=== PATIENT | female | born 1985 | race Caucasian/White ===

== ENCOUNTER 2016-04-20 21:21 | Emergency (ER) | payer OTHER ==
--- NOTE | 2016-04-20 22:46 | ED NECK/BACK PAIN COMPLAINT ---
History of Present Illness General Chief Complaint: Low Back Pain/Injury Stated Complaint: LOWER BACK INJURY Source: patient Exam Limitations: no limitations Allergies Coded Allergies: No Known Allergies (04/20/16) Triage Note: TRIAGE; PT TO ED C/O LOWER BACK PAIN SINCE LAST FRIDAY 04/14. PT STATES HER FOOT SLID WHILE WALKING AT WORK AND STARTED HAVING LOWER BACK PAIN. STATES THE PAIN SHOOTS DOWN BOTH LEGS IF IT FEELS LIKE SCIATICA. PT STATES SHE WENT TO HER PMD THE DAY OF THE INJURY AND THEY SCHEDULED HER FOR XRAYS. WAS AT THE OFFICE FOR XRAYS, BUT WAITED AN HOUR AND LEFT BECAUSE OF THE PAIN. PT STATES SHE THEN WENT TO [facility] THAT NIGHT, HAD XRAYS PERFORMED, BUT STATES NOONE WAS GIVING HER RESULTS SO SHE LEFT THERE WELL. PT REPORTS HAVING AN EPISODE OF BOWEL INCONTINENCE THAT NIGHT. TODAY PT REPORTS HAVING EPISODES OF URINARY INCONTINENCE. WENT TO HER PMD TODAY AND PT WAS TOLD THEY ARE WAITING FOR HER WORKERS COMP TO GO THROUGH SO THEY CAN ORDER AN MRI. PT WAS RX'D LIDODERM PATCHES TODAY FROM HER PCP. PT STATES THAT SHE ALREADY HAS FILED THE WORKERS COMP INFORMATION AND HAS AN SCIENCE TECHNICIAN. PT DENIES NEEDING US TO PUT A CLAIM IN OUR SYSTEM AT THIS TIME. Triage Nurses Notes Reviewed? yes : No Patient currently breastfeeds: No HPI: 30/F with PMH of anxiety and depression presented to [place] ED complaining of back pain after she slipped 6 days ago. She reported that she slipped while walking, she stated that her right leg slipped however she did not fall. She denies any popping sound or feeling on the back after she slipped. At that the of the and stent patient lost control over bowel habit, she felt numbness on her right thigh anteriorly. Patient was seen on the same day of stents and x-ray was done which did not relieve any fracture. Today patient pain still persists, she lost control over urine habits , numbness and burning sensation alternating over both thighs anteriorly. She denies any weakness Patient denies fever, chills, dysuria, pain, dizziness, or headache. (KEVIN FOOTE,ISMAIL) Vital Signs & Intake/Output Vital Signs & Intake/Output Vital Signs Date Time Temp Pulse Resp B/P Pulse O2 O2 Flow FiO2 Ox Delivery Rate 04/21 0037 97.3 97 18 126/78 96 Room Air 04/20 2318 Room Air 04/208 97.4 121 18 135/86 96 Room Air ED Intake and Output 04/21 0000 04/20 1200 Intake Total 0 Output Total Balance 0 Intake, Oral 0 Reconcile Medications Naproxen 500 MG TABLET 1 TAB PO BID disc bulging (EAMON GILLIAM MD) Past History Travel History Traveled to [place] past 21 day No Psychosocial History What is your primary language Paraguayan Tobacco Use: Current Daily Use Daily Tobacco Use Amount/Type: => 5 Cigarettes daily (ZARI BROWN MD) Medical History Any Pertinent Medical History? none Surgical History Surgical History: non-contributory Family History Hx Contributory? No (EAMON GILLIAM MD) Review of Systems Review of Systems Constitutional: Reports: see HPI. Denies: chills, diaphoresis, fever, weakness. (ZARI BROWN MD) Review of Systems Constitutional: Reports: no symptoms. Eyes: Reports: no symptoms. Ears, Nose, Throat, Mouth: Reports: no symptoms. Respiratory: Reports: no symptoms. Cardiovascular: Reports: no symptoms. Gastrointestinal/Abdominal: Reports: no symptoms. Musculoskeletal: Reports: see HPI, back pain. Skin: Reports: no symptoms. Neurological/Psychological: Reports: no symptoms. All Other Systems: Reviewed and Negative (EAMON GILLIAM MD) Physical Exam Physical Exam General Appearance: well developed/nourished, alert, awake, moderate distress ( with movement) Head: atraumatic, normal appearance Neck: normal inspection, full range of motion Back: normal inspection, decreased range of motion because of pain, local tenderness over L4-L5, paraspinal tenderness, positive straight leg raise test bilaterally with left more than right (KEVIN FOOTE,ZARI) Physical Exam General Appearance: well developed/nourished, mild distress Head: atraumatic Eyes: Bilateral: PERRL, EOMI. Ears, Nose, Throat, Mouth: hearing grossly normal Respiratory: normal breath sounds Cardiovascular: regular rate/rhythm Peripheral Pulses: 4+ carotid (R), 4+ carotid (L) Gastrointestinal: soft, non-tender Back: normal inspection Extremities: non-tender, normal range of motion Straight Leg Raising: Right: Pain at ____ degrees (15). Left: Pain at ____ degrees (15). Sensory: Medial Le: L4R, L4L. Top of Foot: 2: L5R, L5L. Sole of Foot: 2: SIR, ERIC. Motor: Deficit L4 Right: No Deficit L4 Left: No Deficit L5 Right: No Deficit L5 Left: No Deficit S1 Right: No Deficit S1 Right: No DTR: Deficit L4 Left: No Deficit L4 Right: No Deficit S1 Left: No Deficit S1 Right: No Patellar: 3: L4 Right, L4 Left. Neurologic/Psych: no motor/sensory deficits, awake, alert, oriented x 3, normal gait, normal mood/affect, feather edger II-XII nml as tested Skin: intact, normal color, warm/dry (EAMON GILLIAM MD) Progress Differential Diagnosis: disc prolapse, disc herniation, vertebral fracture (KEVIN FOOTE,ISMAIL) Plan of Care: Orders Procedure Date/time Status HUMAN BETA HCG SCREEN 04/20 2249 Complete COMPREHENSIVE METABOLIC PANEL 04/20 2244 Complete CBC WITHOUT DIFFERENTIAL 04/20 2244 Complete Laboratory Tests 04/20/162299: Total Beta HCG NEGATIVE 04/20/162299: Anion Gap 16, Estimated GFR > 60, BUN/Creatinine Ratio 11.3, Glucose 112 H, Calcium 9.2, Total Bilirubin 0.3, AST 25, ALT 39, Alkaline Phosphatase 97, Total Protein 7.4, Albumin 4.5, Globulin 2.9, Albumin/Globulin Ratio 1.6, CBC w Diff NO MAN DIFF REQ, RBC 4.86, MCV 88.1, MCH 29.2, RDW 13.9, MPV 8.6, Gran % 61.6, Lymphocytes % 26.7, Monocytes % 9.6 H, Eosinophils % 1.1, Basophils % 1.0, Absolute Granulocytes 5.2, Absolute Lymphocytes 2.2, Absolute Monocytes 0.8 H, Absolute Eosinophils 0.1, Absolute Basophils 0.1, PUBS MCHC 33.2 (KEVIN FOOTE,ISMAIL) Diagnostic Imaging: Viewed by Me: CT Scan. Discussed w/RAD: CT Scan. Radiology Impression: No fracture or malalignment. Small disc bulges at L4-L5 and L5-S1 without spinal canal or neuroforaminal narrowing. MRI is a more sensitive undercover cop for this pathology. (EAMON GILLIAM MD) Departure Departure Disposition: HOME OR SELF CARE Condition: Stable Referrals: ARIELLE PASCUAL MD (PCP/Family) Additional Instructions: Please take naproxen as prescribed, please follow-up with your primary care doctor within 1 week Departure Forms: Customer Survey General Discharge Information Prescriptions: Current Visit Scripts Naproxen 1 TAB PO BID #20 TAB [facility] Departure Clinical Impression Primary Impression: Bulging disc Secondary Impressions: Back pain at L4-L5 level Resident Co-Sign Statement Statement: ED Attending supervision documentation- x I saw and evaluated the patient. I have also reviewed all the pertinent lab results and diagnostic results. I agree with the findings and the plan of care as documented in the Resident's documentation. [] I have reviewed the ED Record and agree with the Resident's documentation. [] Additions or exceptions (if any) to the Resident's note and plan are summarized below: [] (MANE FOOTE,EAMON)
[2016-04-20 23:08] LABS: ABSOLUTE BASOPHIL COUNT 0.1 /CUMM (0.0-0.2); ABSOLUTE EOSINOPHIL COUNT 0.1 /CUMM (0.0-0.7); ABSOLUTE GRANULOCYTE CT 5.2 /CUMM (1.4-6.5); ABSOLUTE LYMPH COUNT 2.2 /CUMM (1.2-3.4); ABSOLUTE MONOCYTE COUNT 0.8 /CUMM (0.10-0.60); EOSINOPHIL % 1.1 % (0-5); GRANULOCYTE % 61.6 % (42.2-75.2); HEMATOCRIT 42.8 % (37-47); MEAN CORPUSCULAR HGB 29.2 PG (27.0-31.0); MEAN CORPUSCULAR HGB CONC 33.2 G/DL (33.0-37.0); MEAN CORPUSCULAR VOLUME 88.1 FL (81.0-99.0); MEAN PLATELET VOLUME 8.6 FL (7.4-10.4); PLATELET COUNT 234 /CUMM (130-400); RBC DISTRIBUTION WIDTH 13.9 % (11.5-14.5); RED BLOOD CELL CT 4.86 /CUMM (4.20-5.40); WHITE BLOOD CELL COUNT 8.4 /CUMM (4.8-10.8)
--- NOTE | 2016-04-21 00:07 | CT SCAN REPORT ---
EXAMINATION: CT LUMBAR SPINE WITHOUT CONTRAST CLINICAL INFORMATION: Back pain and numbness on both thighs post slipping. COMPARISON: None. TECHNIQUE: Helical non-contrast CT images were obtained through the lumbar spine and 1.25 and 2.5 mm axial reconstructions were reviewed along with sagittal and coronal MPRs. DLP: 667 mGy-cm. FINDINGS: Vertebral body height and alignment is maintained. No acute fracture or subluxation. Disc spaces are maintained. The sacroiliac joints are intact. A normal appendix is noted. No lymphadenopathy. SPINAL LEVELS: T12-L1: Normal. L1-L2: Normal. L2-L3: Normal. L3-L4: Normal. L4-L5: Small disc bulge. No spinal canal or neuroforaminal narrowing. L5-S1: Small disc bulge. No spinal canal or neuroforaminal narrowing. IMPRESSION: No fracture or malalignment. Small disc bulges at L4-L5 and L5-S1 without spinal canal or neuroforaminal narrowing. MRI is a more sensitive clay caster for this pathology.
[2016-04-21] MEDS ORDERED: NAPROXEN500 M2 PO (00:30)
[2016-04-21 00:37] VITALS: BP 126/78
== END 2016-04-21 00:38 ==
LOC: ERH 21:21
PROVIDERS: Student in an Organized Health Care Education/Training Program
DX: M51.86 Other intervertebral disc disorders, lumbar region (principal)
CPT/HCPCS: 96374; J1885

== ENCOUNTER 2016-10-05 22:52 | Emergency (ER) | payer OTHER ==
[~2016-10-05] VITALS: Ht 160 cm; Wt 83.9 kg
[~2016-10-05 22:52] MED LIST: NAPROXEN500 M2 PO
[2016-10-05 22:56] VITALS: BP 141/95
--- NOTE | 2016-10-05 23:41 | ED PSYCHIATRIC COMPLAINT ---
History of Present Illness General Chief Complaint: Psychiatric Related Complaint Stated Complaint: FEELING MANIC, FEELS MEDS AREN'T WORKING Source: patient, family, old records Exam Limitations: no limitations Vital Signs & Intake/Output Vital Signs & Intake/Output Vital Signs Date Time Temp Pulse Resp B/P B/P Pulse O2 O2 Flow FiO2 Mean Ox Delivery Rate 10/05 2256 97.6 100 18 141/95 98 Room Air ED Intake and Output 10/06 0000 10/05 1200 Intake Total Output Total Balance Patient 185 lb Weight Weight Reported by Patient Measurement Method Allergies Coded Allergies: No Known Allergies (04/20/16) Reconcile Medications Naproxen 500 MG TABLET 1 TAB PO BID disc bulging Triage Note: PT TO TRIAGE FOR MANIC EPISODE STARTED ON SUNDAY AND MEDS ARE NOT HELPING. PT DENIES SI/HI, DENIES ETOH, ILLICIT DRUG USE. HX OF BIPOLAR DISORDER. Triage Nurses Notes Reviewed? yes Onset: 3 days Duration: day(s):, changing over time, continues in ED, getting worse Timing: recent history Severity: moderate, severe Associated Symptoms: anxiety, impaired concentration, insomnia LMP (ages 10-50): unknown : No Patient currently breastfeeds: No HPI: 3 days prior to admission patient complains of elevated mood anxiety not relieved with current medications. Prior to admission she took her meds was unable to sleep with continued anxiety and elevated mood. She denies fever chills nausea vomiting diarrhea abdominal pain chest pain shortness breath headache dysuria rash bleeding homicidal ideation suicidal ideation hallucination. Past History Travel History Traveled to [place] past 21 day No Medical History Any Pertinent Medical History? see below for history Psychiatric: bipolar disease Surgical History Surgical History: non-contributory Psychosocial History What is your primary language Norwegian Tobacco Use: Quit <30 days ago ETOH Use: denies use Illicit Drug Use: denies illicit drug use Family History Hx Contributory? No Review of Systems Review of Systems Constitutional: Reports: no symptoms. EENTM: Reports: no symptoms. Respiratory: Reports: no symptoms. Cardiovascular: Reports: no symptoms. GI: Reports: no symptoms. Genitourinary: Reports: no symptoms. Musculoskeletal: Reports: no symptoms. Skin: Reports: no symptoms. Neurological/Psychological: Reports: see HPI, anxiety, confusion. Hematologic/Endocrine: Reports: no symptoms. Immunologic/Allergic: Reports: no symptoms. All Other Systems: Reviewed and Negative Physical Exam Physical Exam General Appearance: well developed/nourished, alert, awake, anxious, moderate distress, obese Head: atraumatic, normal appearance Eyes: Bilateral: normal appearance, PERRL, EOMI. Ears, Nose, Throat: normal pharynx, normal ENT inspection, hearing grossly normal Neck: normal inspection, supple, full range of motion, no midline tenderness Respiratory: normal breath sounds, chest non-tender, no respiratory distress, quiet respiration, lungs clear Cardiovascular: regular rate/rhythm, normal peripheral pulses, norml femoral pulses equa Gastrointestinal: normal bowel sounds, soft, non-tender, no organomegaly Extremities: normal range of motion, no ligament instability Neurological/Psychiatric: no motor/sensory deficits, awake, agitated, alert, anxious, burner technician II-XII nml as tested, oriented x 3 Appearance/Memory/Insight: appropriate appearance, appropriate insight Behavoir/Eye Contact/Speech: cooperative, normal speech Thoughts/Hallucinations: no apparent hallucination Skin: intact, normal color, warm/dry SAD PERSONS Done? patient not suicidal Progress Differential Diagnosis: drug intoxication, drug overdose, drug withdrawal, electrolyte abnormality, hypoglycemia Plan of Care: Current Medications Sig/Roney Start time Last Medication Dose Stop Time Status Admin Lorazepam 2 MG ONCE ONE 10/05 2329 UNVr 10/05 (Ativan) 10/05 2331 2335 Departure Departure Time of Disposition: 7 Disposition: HOME OR SELF CARE Condition: Stable Clinical Impression Primary Impression: Bipolar disorder, manic phase Referrals: ARIELLE PASCUAL MD (PCP/Family) Departure Forms: Customer Survey General Discharge Information
== END 2016-10-06 00:15 ==
LOC: ERH 22:52
DX: F31.9 Bipolar disorder, unspecified (principal)